=== PATIENT | male | born 1930 | race Caucasian/White ===

== ENCOUNTER 2020-10-02 15:05 | Emergency (ER) | payer OTHER ==
[2020-10-02 15:17] VITALS: BMI 24.2
[2020-10-02] MEDS ORDERED: SODIUM CHLORIDE 1,000 ML IV SCH (15:45)
[2020-10-02 16:09] LABS: BASO % 0.7 % (0-2.0); EOS % 0.5 % (0-4.5); HEMATOCRIT 40.2 % (35.4-49); HEMOGLOBIN 13.3 GM/dL (11.7-16.9); LYMPH % 18.7 % (8-40); MCHC 33.2 g/dl (32.0-35.9); MEAN CELL VOLUME 84.2 fl (80-96); MEAN PLT VOLUME 8.9 fl (7.5-11.1); MONO % 7.3 % (3.8-10.2); NEUT % 72.8 % (42.8-82.8); PLATELET COUNT 217 K/MM3 (134-434); RBC 4.77 M/mm3 (4.00-5.60); RDW 13.4 % (11.9-15.9); WHITE BLOOD COUNT 10.6 K/mm3 (4.0-10.0)
[2020-10-02 16:18] LABS: INR 1.04 (0.83-1.09); PROTHROMBIN TIME (PATIENT) 12.6 SEC (9.7-13.0)
[2020-10-02 16:20] LABS: ACTIVATED PTT 33.7 SECONDS (25.2-36.5)
[2020-10-02] MEDS ORDERED: levETIRAcetam 500 MG/5 ML INJECTION VIAL IVPB ONE ×2 (16:29→16:38)
[2020-10-02 16:45] LABS: CHLORIDE 107 mmol/L (98-107); POTASSIUM 4.5 mmol/L (3.5-5.1); SODIUM 139 mmol/L (136-145)
[2020-10-02 16:47] LABS: CALCIUM 9.2 mg/dL (8.5-10.1)
[2020-10-02 16:48] LABS: ALBUMIN 4.1 g/dl (3.4-5.0); ANION GAP 5 MMOL/L (8-16); BLOOD UREA NITROGEN 31.3 mg/dL (7-18); CO2 27 mmol/L (21-32); GLUCOSE,RANDOM 118 mg/dL (74-106)
[2020-10-02 16:51] LABS: CHOLESTEROL 179 mg/dL (50-200); CREATININE 1.6 mg/dL (0.55-1.3); SGOT/AST 24 U/L (15-37); SGPT/ALT 27 U/L (13-61); TRIGLYCERIDES 92 mg/dL (0-150)
[2020-10-02 16:52] LABS: BILIRUBIN,TOTAL 0.7 mg/dL (0.2-1); LDL CHOLESTEROL (ONLY SJRH) 107 mg/dL (5-100)
[2020-10-02 16:53] LABS: ALK PHOS 83 U/L (45-117); HDL CHOLESTEROL 57 mg/dL (40-60)
[2020-10-02 17:06] VITALS: BP 129/69; PULSE 92
[2020-10-02 17:10] VITALS: TEMP 98
== END 2020-10-02 17:00 | disposition short-term general hospital (02) ==
LOC: JER 15:05
PROC: 3E033GC Introduction of Other Therapeutic Substance into Peripheral Vein, Percutaneous Approach (ICD-10-PCS; principal; 2020-10-02)
DX: I61.9 Nontraumatic intracerebral hemorrhage, unspecified (principal)
CPT/HCPCS: 36415; 70450-TC; 80053; 80061; 82550; 82962; 83721; 84484; 85025; 85610; 85730; 86850; 86900; 86901; 93005; 93010; 96374; 99285-25; C9803; U0003